=== PATIENT | male | born 2000 | race Caucasian/White ===

== ENCOUNTER 2020-05-03 00:09 | Emergency (ER) | payer SELFPAY ==
[~2020-05-03] VITALS: Ht 195.6 cm; Wt 131.8 kg
[2020-05-03] MEDS ORDERED: TESSALON PERLE100 MG PO (01:25)
[2020-05-03 01:26] VITALS: BP 135/70
--- NOTE | 2020-05-07 16:07 | NUR ---
Patient called requesting Covid results. Negative results given. Patient requesting copy of result karena left at fromt desk. Patient requires for employer. 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
== END 2020-05-03 01:26 | disposition home or self-care (01) | DRG 153 ==
LOC: ED 00:09
DX: J06.9 Acute upper respiratory infection, unspecified (principal); Z20.828 Contact with and (suspected) exposure to other viral communicable diseases